=== PATIENT | male | born 1970 | race Caucasian/White ===

== ENCOUNTER → 2019-04-11 10:57 | Outpatient (CLI) | payer OTHER, SELFPAY ==
--- NOTE | 2019-04-11 11:05 | ECHOCS_ITS ---
Reason For Study: CHEST PAIN Procedure This was a 2D Doppler, Color Flow transthoracic echocardiogram. The study was technically difficult. Contrast injection was performed. Exam performed in department. Left Ventricle Normal LV size. Mild concentric left ventricular hypertrophy. Left ventricular systolic function is normal. The estimated ejection fraction is 60 %. Stage 1 diastolic dysfunction. No regional wall motion abnormalities noted. Right Ventricle Normal RV size. Normal systolic function. Atria Normal left atrium. Normal right atrium. Mitral Valve Normal mitral valve. Tricuspid Valve Normal tricuspid valve. Aortic Valve Normal aortic valve. Trisinus/trileaflet aortic valve. Pulmonic Valve Normal pulmonic valve. Great Vessels Normal aortic root. The pulmonary artery is normal size. Normal inferior vena cava. Pericardium/Pleural No pericardial effusion. Medication 22 gauge I.V. with prn adaptor inserted into right arm. Diluted definity 4.0ml given slow IV push to enhance endocardial definition. MMode/2D Measurements & Calculations LVIDd: 5.0 cm IVSd: 1.2 cm Ao root diam: 4.1 cm LVIDs: 3.4 cm LVPWd: 1.2 cm RVDd: 4.2 cm FS: 32.5 % LAV(MOD-bp): 42.3 ml EDV(MOD-sp4): 151.7 ml EDV(MOD-sp2): 124.4 ml LAV(MOD-bp) Indexed: 17.2 ml/m2 ESV(MOD-sp4): 74.1 ml EF(MOD-sp2): 43.6 % LAV(MOD-sp2): 31.2 ml EF(MOD-sp4): 51.2 % LAV(MOD-sp4): 46.4 ml SV(MOD-sp4): 77.7 ml SV(MOD-sp2): 54.3 ml LA A4 area: 18.8 cm2 LA dimension(2D): 4.4 cm RA A4 area: 16.5 cm2 Time Measurements MV dec time: 0.25 sec Doppler Measurements & Calculations MV E max patricio: 64.4 cm/sec Lat Peak E' Patricio: 9.8 cm/sec Med Peak E' Patricio: 4.7 cm/sec MV A max patricio: 81.7 cm/sec E/E' lat: 6.6 E/E' med: 13.7 MV E/A: 0.79 Ao V2 max: 147.8 cm/sec LV V1 max: 128.3 cm/sec PA V2 max: 130.8 cm/sec Ao max P.7 mmHg LV V1 max P.6 mmHg Interpretation Summary Normal LV size. Mild concentric left ventricular hypertrophy. Left ventricular systolic function is normal. The estimated ejection fraction is 60 %. Stage 1 diastolic dysfunction. Contrast injection was performed. Ordering Physician: Shelby Costello Referring Physician: Shelby Costello Performed By: Kay Cam, MOHIT, RVT
--- NOTE | 2019-04-11 14:26 | STRESSREP ---
Stress Test Report Exercise stress test. 48-year-old man with a history of chest pain. Stress protocol: Resting EKG demonstrates normal sinus rhythm with a rate of 79 bpm resting blood pressures 148/92 mmHg. The patient exercised according to regular [place] protocol for total duration of 9 minutes. The maximum heart rate was 153 bpm which was 87% of maximum predicted heart rate the maximum workload was 10.4 metabolic equivalents. At rest there were no ST or T wave changes noted suggest ischemia peak exercise upsloping ST changes only were noted with no meet the criteria for ischemia. Resting blood pressures 148/92 with a peak blood pressure of 204/96 mmHg. No clinical angina was noted the test was terminated due to dyspnea. Conclusion: Exercise stress test with no EKG criteria for ischemia at a high workload. Good functional capacity. Hypertensive response to exercise.
== END ==
LOC: CVS 11:01
PROVIDERS: Family Provider Nurse Practitioner Family; PCP Nurse Practitioner Family; Referring Provider Nurse Practitioner Family; Visit Provider Nurse Practitioner Family
DX: R07.9 Chest pain, unspecified (principal); R06.02 Shortness of breath; I10 Essential (primary) hypertension; Z82.49 Family history of ischemic heart disease and other diseases of the circulatory system
CPT/HCPCS: 93017; 93306; Q9957; A4216; C8929

== ENCOUNTER → 2022-08-01 | Outpatient (CLI) | payer BC, SELFPAY ==
--- NOTE | 2022-08-01 13:44 | ECHOD_ITS ---
Reason For Study: HTN Procedure This was a 2D Doppler, Color Flow transthoracic echocardiogram. Exam performed in department. Left Ventricle Normal LV size. The estimated ejection fraction is 60 %. No evidence for diastolic dysfunction. No regional wall motion abnormalities noted. Right Ventricle Normal RV size. Normal systolic function. Atria Normal left atrium. Normal right atrium. No doppler evidence for ASD. Mitral Valve There is no mitral valve stenosis. Trivial mitral valve insufficiency. Tricuspid Valve There is no tricuspid stenosis. Unable to estimate RV systolic pressure due to insufficient tricuspid regurgitant envelope. Trivial tricuspid valve insufficiency. Aortic Valve Trisinus/trileaflet aortic valve. There is no aortic stenosis. No aortic valve insufficiency. Pulmonic Valve There is no pulmonic valvular stenosis. No pulmonic valve insufficiency. Great Vessels Normal aortic root. Pericardium/Pleural No pericardial effusion. MMode/2D Measurements & Calculations LVIDd: 5.2 cm IVSd: 1.3 cm Ao root diam: 3.8 cm LVIDs: 3.5 cm LVPWd: 1.2 cm FS: 33.3 % LAV(MOD-bp): 55.1 ml LVAd ap4: 37.4 cm2 SV(MOD-sp4): 77.7 ml LAV(MOD-bp) Indexed: 22.4 ml/m2 LVLd ap4: 8.8 cm LAV(MOD-sp2): 52.6 ml EDV(MOD-sp4): 132.8 ml LAV(MOD-sp4): 54.9 ml EDV(sp4-el): 135.5 ml LVAs ap4: 21.4 cm2 LVLs ap4: 7.0 cm ESV(MOD-sp4): 55.1 ml ESV(sp4-el): 55.1 ml EF(MOD-sp4): 58.5 % EF(sp4-el): 59.3 % SV(sp4-el): 80.4 ml LA A4 area: 19.0 cm2 LA dimension(2D): 4.3 cm RA A4 area: 29.4 cm2 Time Measurements MV dec time: 0.10 sec Doppler Measurements & Calculations MV E max patricio: 94.2 cm/sec Lat Peak E' Patricio: 14.1 cm/sec Med Peak E' Patricio: 11.4 cm/sec MV A max patricio: 65.2 cm/sec E/E' lat: 6.7 E/E' med: 8.3 MV E/A: 1.4 MV V2 max: 104.0 cm/sec Ao V2 max: 123.0 cm/sec MV max P.4 mmHg MV dec slope: 1018 cm/sec2 Ao max P.1 mmHg MV V2 mean: 64.8 cm/sec Ao V2 mean: 87.5 cm/sec MV mean P.9 mmHg Ao mean P.5 mmHg MV V2 VTI: 30.9 cm Ao V2 VTI: 25.9 cm AV (velocity ratio): 0.87 LV V1 max: 112.5 cm/sec PA V2 max: 119.0 cm/sec LV V1 max P.1 mmHg PA V2 mean: 79.3 cm/sec LV V1 mean P.7 mmHg LV V1 mean: 77.2 cm/sec LV V1 VTI: 22.5 cm ECHO/Echo Complete Interpretation Summary The estimated ejection fraction is 60 %. No evidence for diastolic dysfunction. Trivial mitral valve insufficiency. Ordering Physician: Shelby Costello Referring Physician: Shelby Costello Performed By: Xochitl Aragon RCS
== END | disposition home or self-care (01) ==
LOC: CVS 13:43
PROVIDERS: PCP Nurse Practitioner Family; Referring Provider Nurse Practitioner Family; Visit Provider Nurse Practitioner Family
DX: I11.0 Hypertensive heart disease with heart failure (principal); I50.30 Unspecified diastolic (congestive) heart failure; E66.01 Morbid (severe) obesity due to excess calories; G47.33 Obstructive sleep apnea (adult) (pediatric)
CPT/HCPCS: 93306

== ENCOUNTER 2023-12-26 21:13 | Emergency (ER) | payer SELFPAY ==
[2023-12-26 21:14] VITALS: BP 192/109; PULSE 106; RESP 20; TEMP 37.7; O2SAT 96; BMI 43.3
--- NOTE | 2023-12-26 22:25 | RAD_ITS ---
INDICATION: injury EXAMINATION/TECHNIQUE: X-RAY - LEFT XR Hand Min 3 Views COMPARISON: None. FINDINGS: 3 views of the left hand. Severely comminuted displaced intra-articular fracture of the index finger distal phalanx. Associated soft tissue swelling. No other definite acute osseous abnormality. RAD/Hand Min 3 Views IMPRESSION: Left index finger fracture. Electronically Signed: Shaji Orlando MD at 23:29 EDT ,
[2023-12-26] MEDS: Amox/Clavulanate 875 MG Tablet PO (22:26)
--- NOTE | 2023-12-26 23:14 | EDS_ITS ---
HPI History of Present Illness Chief Complaint: Upper Extremity Injury Informant: patient and spouse/S.O. Narrative Narrative: Patient is a 53-year-old male with past medical history of hypertension and GERD. He states roughly 24 hours ago he was using a sledgehammer and accidentally struck his left index finger. He states that he had sudden onset of pain and swelling and bleeding. He reports that a few years ago he damaged the same finger with a circular saw and had to have his nail removed and nailbed repaired which he states was very traumatic for him as he cannot get fully anesthetized. He had concerned that a similar event may need to take place so he did not come to the hospital after the accident. However today he developed a fever of 102. He states that despite having the fever there is been no nasal congestion sore throat cough or congestion. He denies any abdominal pain nausea vomiting diarrhea or dysuria. He denies any known sick contacts. He denies any history of immunosuppression. However when he developed a fever today and he had the injury yesterday had concern for a bone or blood infection and therefore brought him in for evaluation [facility] Medical History (Updated 12/27/23 @ 02:[address] Taurus Odom, DO) GERD (gastroesophageal reflux disease) Former smoker CPAP (continuous positive airway pressure) dependence Sleep apnea Hypertension Home Medications ?Medication ?Instructions ?Recorded ?Last Taken ?Type amlodipine 10 mg tablet 10 mg PO DAILY 12/26/23 Unknown History amoxicillin 875 mg-potassium 1 tab PO BID 10 days #20 tabs 12/26/23 Unknown Rx clavulanate 125 mg tablet clonidine HCl 0.1 mg tablet 0.2 mg PO BID 12/26/23 Unknown History lisinopril 40 mg tablet 40 mg PO DAILY 12/26/23 Unknown History omeprazole 20 mg capsule,delayed 20 mg PO DAILY PRN gerd 12/26/23 Unknown History release Allergy/AdvReac Type Severity Reaction Status Date / Time No Known Allergies Allergy Verified 12/26/23 21:13 Social History (Updated 11/04/19 @ 13:02 by Reyes PERDOMO, LEANNE) Smoking Status: Former smoker ROS ROS ED Constitutional Constitutional ED: Reports chills and fever(s) ENT ENT ED: Denies rhinorrhea or sore throat Cardiovascular Cardiovascular: Denies chest pain, palpitations or racing heartbeat Respiratory/Chest Respiratory/Chest: Denies cough or dyspnea Gastrointestinal Gastrointestinal: Denies abdominal pain, diarrhea, nausea or vomiting Genitourinary Genitourinary ED: Denies dysuria Musculoskeletal Musculoskeletal: Reports other Details: Positive for left index finger pain/injury ; Denies myalgias Integumentary Reports Abrasions; Denies rash Neurologic Neurologic: Denies headache(s), paresthesias or weakness Hematologic/Lymphatic Hematologic/Lymphatic: Denies easy bleeding or easy bruising EXAM Physical Exam Const Vital Signs: 12/26/23 21:14 Temperature 99.8 F H Temperature Source Temporal Pulse Rate 106 H Respiratory Rate 20 H Blood Pressure 192/109 H Blood Pressure Mean 136 Pulse Ox 96 Oxygen Delivery Method Room Air Positive well nourished, well developed and obese General Appearance ED: well developed Nutritional Appearance: obese HEENT Reports moist mucous membranes HEENT Narrative: No tongue or lip swelling no oral lesions no airway edema or compromise No signs of infection noted in posterior pharynx Eyes PERRL and EOMs intact bilaterally Eyes Narrative: No scleral icterus noted Neck full ROM and supple Neck Narrative: No nuchal rigidity or meningeal signs Resp normal respiratory effort and clear to auscultation bilaterally Resp Narrative: No nasal flaring retractions tachypnea or accessory muscle use and breath sounds are clear throughout Cardio regular rate and regular rhythm GI non-tender, non-distended and no masses GI Narrative: Soft nontender nondistended with normal active bowel sounds. No voluntary guarding or rigidity or pulsatile mass Auscultation: normoactive bowel sounds Palpation: soft Back/Spine no CVA tenderness Extremity Extremity Narrative: Left upper extremity is neurovascularly intact. There is soft tissue swelling to the distal aspect of the left index finger consistent with trauma. There is approximately 30% subungual hematoma noted. There is a faint ooze of dark red nonpulsatile blood from the lateral aspect of the index finger nailbed. There is no surrounding erythema or warmth. No purulent discharge. No lymphangitic streak. Range of motion is decreased secondary to pain and trauma but patient still is able to flex and extend the digit going against a flexor or extensor tendon injury Remainder of the exam is normal Neuro oriented x3 and CN's II-XII intact bilaterally Sensorium / Orientation: alert Psych mental status grossly normal Skin Skin Narrative: Soft tissue swelling with damage to the left index finger nailbed as documented above MDM MDM MDM Narrative Medical decision making narrative: Patient arrived to the ER hypertensive but has a past medical history of this with low-grade temperature. He denies any history of immunosuppression such as diabetes MS chemotherapy or antirejection medication. He also denies any associated symptoms with the fever such as headache nausea vomiting diarrhea dysuria cough or congestion or sore throat. There is concern that he is developing a secondary infection from his injury. However there is no erythema or warmth no purulent discharge no lymphangitic streaking and no signs of tenosynovitis. As the patient is not immunosuppressed my concern for osteomyelitis or septic joint is also low. As his subungual hematoma was less than 50% there is no need for trephination. In order to confirm the finger was fractured an x-ray was obtained. This showed a comminuted fracture consistent with the mechanism of injury. The patient had mild persistent ooze of blood and we discussed potentially removing the nail and suturing the nailbed together but he is not on a blood thinner the amount of blood loss is minimal and the area should heal with time and pressure wrap and therefore he does not want to undergo nailbed removal and suturing at this time. As he does have a fracture with laceration there is concern this is an open fracture so he will be started on Augmentin. The patient does have a fever but he does not have signs of septicemia. As his only been 24 hours since the injury my concern for bone infection such as osteomyelitis or septic joint is low and do not feel there is need for further workup or emergent orthopedic consultation. Therefore this time I do not feel there is need for laboratory testing as other than the fever patient is hemodynamically stable and he does not have physical exam findings of erythema warmth purulent discharge lymphangitic streaking to suggest a wound infection. Moreover the fact it has been 24 hours since the initial injury would make development of a wound infection less likey. Therefore I feel that the fever is most likely coincidental with the injury and most likely from a viral source. Also as he has been started on antibiotics for open fracture laboratory studies would not change mode of care and therefore he can be discharged and follow-up as an outpatient. History & Record Review Discussion w/independent historian: Patient and Significant other Radiography Diagnostic Testing: X-ray of the left hand as interpreted by the emergency medicine physician shows a comminuted fracture to the left index finger distal phalanx without retained foreign body or free air Discharge Plan Triage Chief Complaint: Upper Extremity Injury ED Provider: Taurus Odom Dx/Rx/DC Orders Clinical Impression: Open fracture of distal phalanx of left index finger, Hypertension Instructions: ED Fracture, Finger, Open Prescriptions: New amoxicillin-pot clavulanate 875-125 mg tablet 1 tab PO BID 10 Days Qty: 20 0RF No Action clonidine HCl 0.1 mg tablet 0.2 mg PO BID amlodipine 10 mg tablet 10 mg PO DAILY omeprazole 20 mg capsule,delayed release(DR/EC) 20 mg PO DAILY PRN (Reason: gerd) lisinopril 40 mg tablet 40 mg PO DAILY Primary Care Provider: Shelby Costello NP Referrals: Justus Wagner DO [Med Staff - Active Staff] - Shelby Costello NP, [employer] [Primary Care Provider] - Activity Restrictions/Additional Instructions: Please continue to wash area with soap and water and keep it bandaged to prevent infection and help with wound healing. Follow-up with orthopedics to discuss any further intervention for your finger fracture and return to the ER should you have any further concerns. Print Language: Kittitian Disposition Disposition: Home, Self Care Discharge Date/Time: 12/27/23 00:05
[2023-12-26 23:33] VITALS: BP 160/93; PULSE 78; RESP 16; TEMP 39.3; O2SAT 97
[2023-12-26] MEDS: Acetaminophen 500 MG Tablet 1000 MG PO (23:43)
== END 2023-12-27 00:05 | disposition home or self-care (01) ==
PROVIDERS: Emergency Provider Emergency Medicine; PCP Nurse Practitioner Family; Visit Provider Emergency Medicine
DX: S62.631B Displaced fracture of distal phalanx of left index finger, initial encounter for open fracture (principal); W22.8XXA Striking against or struck by other objects, initial encounter; Y93.89 Activity, other specified; I10 Essential (primary) hypertension; Z79.899 Other long term (current) drug therapy; Z87.891 Personal history of nicotine dependence
CPT/HCPCS: 73130; 99283